=== PATIENT | female | born 2000 | race American Indian/Alaskan Native ===

== ENCOUNTER 2020-02-09 14:20 | Emergency (ER) | payer OTHER ==
[~2020-02-09] VITALS: Ht 160 cm; Wt 68.0 kg
[2020-02-09 14:54] LABS: BASOPHILS ABSOLUTE AUTO 0.03 K/mm3 (0.00-0.23); BASOPHILS PERCENT AUTO 0 % (0-2); EOSINOPHILS PERCENT AUTO 2 % (0-6); Hematocrit 47.9 % (33.0-51.0); Hemoglobin 14.6 g/dL (11.5-16.0); IMMATURE GRAN ABSOLUTE AUTO 0.03 K/mm3 (0.00-0.10); IMMATURE GRAN PERCENT AUTO 0 % (0-1); LYMPHOCYTES PERCENT AUTO 21 % (21-46); MONOCYTES ABSOLUTE AUTO 0.55 K/mm3 (0.16-1.47); MONOCYTES PERCENT AUTO 6 % (4-13); Mean Corpuscular HGB Conc 30.5 g/dL (31.5-36.5); Mean Corpuscular Volume 85 fL (80-100); Mean Platelet Volume 11.1 fL (9.1-12.4); NEUTROPHILS ABSOLUTE AUTO 6.94 K/mm3 (1.96-9.15); NEUTROPHILS PERCENT AUTO 71 % (41-73); Platelet Count 304 K/mm3 (150-400); RDW Coefficient Variation 14.7 % (11.7-14.2); RDW Standard Deviation 46.5 fL (35.1-46.3); Red Blood Cell Count 5.61 M/mm3 (3.80-5.20); White Blood Cell Count 9.75 K/mm3 (4.00-11.30)
[2020-02-09 15:15] LABS: Alanine Aminotransfer (ALT/SGP 27 U/L (12-78); Albumin, Blood 3.9 g/dL (3.4-5.0); Albumin/Globulin Ratio 0.9 (0.8-1.8); Alk Phos 98 U/L (50-136); Anion Gap 4 mmol/L (6-16); Aspartate Aminotrans (AST/SGOT 18 U/L (12-37); Bilirubin, Total 0.6 mg/dL (0.1-1.0); Blood Urea Nitrogen 11 mg/dL (8-24); Bun/Creatinine Ratio 21.1 (12.0-20.0); CO2, Blood 28 mmol/L (21-32); Calcium, Blood 9.2 mg/dL (8.5-10.1); Chloride, Blood 107 mmol/L (98-108); Creatinine, Blood 0.52 mg/dL (0.40-1.00); Globulin, Blood 4.3 g/dL (2.2-4.0); Glomerular Filtration Rate >60 (60-); Glucose, Blood 99 mg/dL (70-99); Potassium, Blood 4.1 mmol/L (3.5-5.5); Sodium, Blood 139 mmol/L (136-145); Total Protein, Blood 8.2 g/dL (6.4-8.2)
[2020-02-09 15:26] LABS: Source, Urine Clean Catch
[2020-02-09 15:30] LABS: Appearance, Urine Cloudy (Clear); Bilirubin, Urine Neg (Neg); Blood, Urine 1+ (Neg); Color, Urine Yellow (P-Yellow); Glucose Qualitative, Urine Neg (Neg); Ketones, Urine Neg (Neg); Leukocyte Esterase, Urine 2+ (Neg); Nitrite, Urine Pos (Neg); Protein, Urine 2+ (Neg); Urobilinogen, Urine 2+ (Normal)
[2020-02-09 15:44] LABS: Bacteria Many /hpf; Red Blood Cells, Urine Not Seen /hpf (0-2); Squamous Epithelial Cells Mod /hpf (Few)
== END 2020-02-09 18:42 | disposition left against medical advice (07) ==
LOC: ER 14:20
PROVIDERS: Emergency Medicine
DX: R11.2 Nausea with vomiting, unspecified (principal); R10.9 Unspecified abdominal pain; Z53.21 Procedure and treatment not carried out due to patient leaving prior to being seen by health care provider
CPT/HCPCS: 80053; 81001; 81025; 83690; 85025; 87077; 87086; 87186

== ENCOUNTER 2020-06-24 21:15 | Emergency (ER) | payer OTHER ==
[~2020-06-24] VITALS: Ht 160 cm; Wt 67.1 kg
[2020-06-24 21:39] LABS: Source, Urine Clean Catch
[2020-06-24 21:43] LABS: Appearance, Urine Hazy (Clear); Bilirubin, Urine Neg (Neg); Blood, Urine 5+ (Neg); Color, Urine Yellow (P-Yellow); Glucose Qualitative, Urine Neg (Neg); Ketones, Urine 1+ (Neg); Leukocyte Esterase, Urine 3+ (Neg); Nitrite, Urine Pos (Neg); Protein, Urine 2+ (Neg); Specific Gravity, Urine 1.015 (1.003-1.022); Urobilinogen, Urine 2+ (Normal)
[2020-06-24 21:49] LABS: Bacteria Many /hpf; Red Blood Cells, Urine 0-2 /hpf (0-2); Squamous Epithelial Cells Few /hpf (Few); White Blood Cells, Urine TNTC /hpf (0-5)
[2020-06-24 22:03] LABS: BASOPHILS ABSOLUTE AUTO 0.03 K/mm3 (0.00-0.23); BASOPHILS PERCENT AUTO 0 % (0-2); EOSINOPHILS ABSOLUTE AUTO 0.08 K/mm3 (0.00-0.68); EOSINOPHILS PERCENT AUTO 1 % (0-6); Hematocrit 39.6 % (33.0-51.0); Hemoglobin 13.1 g/dL (11.5-16.0); IMMATURE GRAN ABSOLUTE AUTO 0.04 K/mm3 (0.00-0.10); IMMATURE GRAN PERCENT AUTO 0 % (0-1); LYMPHOCYTES ABSOLUTE AUTO 1.67 K/mm3 (0.84-5.20); LYMPHOCYTES PERCENT AUTO 17 % (21-46); MONOCYTES ABSOLUTE AUTO 0.95 K/mm3 (0.16-1.47); MONOCYTES PERCENT AUTO 9 % (4-13); Mean Corpuscular HGB 28.9 pg (26.0-34.0); Mean Corpuscular HGB Conc 33.1 g/dL (31.5-36.5); Mean Corpuscular Volume 87 fL (80-100); NEUTROPHILS PERCENT AUTO 73 % (41-73); Platelet Count 247 K/mm3 (150-400); RDW Coefficient Variation 12.9 % (11.7-14.2); RDW Standard Deviation 41.2 fL (35.1-46.3); Red Blood Cell Count 4.53 M/mm3 (3.80-5.20); White Blood Cell Count 10.07 K/mm3 (4.00-11.30)
[2020-06-24 22:25] LABS: Alanine Aminotransfer (ALT/SGP 21 U/L (12-78); Albumin, Blood 3.2 g/dL (3.4-5.0); Albumin/Globulin Ratio 0.7 (0.8-1.8); Alk Phos 79 U/L (50-136); Anion Gap 4 mmol/L (6-16); Aspartate Aminotrans (AST/SGOT 20 U/L (12-37); Bilirubin, Total 0.6 mg/dL (0.1-1.0); Blood Urea Nitrogen 7 mg/dL (8-24); Bun/Creatinine Ratio 11.7 (12.0-20.0); CO2, Blood 28 mmol/L (21-32); Calcium, Blood 8.8 mg/dL (8.5-10.1); Chloride, Blood 105 mmol/L (98-108); Globulin, Blood 4.3 g/dL (2.2-4.0); Glomerular Filtration Rate >60 (60-); Glucose, Blood 92 mg/dL (70-99); Potassium, Blood 3.4 mmol/L (3.5-5.5); Sodium, Blood 137 mmol/L (136-145); Total Protein, Blood 7.5 g/dL (6.4-8.2)
[2020-06-24] MEDS ORDERED: PHENA200 PO (23:20)
[2020-06-24] MEDS ORDERED: Bactrim Ds Tab1 EACH PO (23:20)
[2020-08-05] MEDS ORDERED: VISBIOME 112.51 EACH PO (14:40)
[2020-08-05] MEDS ORDERED: POTA10T PO (14:40)
[2020-08-05] MEDS ORDERED: CIPR500 PO (14:40)
== END 2020-06-24 23:38 | disposition home or self-care (01) ==
LOC: ER 21:15
PROVIDERS: Physician Assistant
DX: N12 Tubulo-interstitial nephritis, not specified as acute or chronic (principal); Z77.22 Contact with and (suspected) exposure to environmental tobacco smoke (acute) (chronic); Z88.1 Allergy status to other antibiotic agents
CPT/HCPCS: 36415; 80053; 81001; 85025; 87077; 87086; 87186; 99284; A9270

== ENCOUNTER 2020-07-23 16:20 | Emergency (ER) | payer OTHER ==
[~2020-07-23] VITALS: Ht 160 cm; Wt 68.0 kg
[~2020-07-23 16:20] MED LIST: Bactrim Ds Tab1 EACH PO; PHENA200 PO
[2020-07-23 16:45] LABS: BASOPHILS ABSOLUTE AUTO 0.04 K/mm3 (0.00-0.23); BASOPHILS PERCENT AUTO 1 % (0-2); EOSINOPHILS ABSOLUTE AUTO 0.23 K/mm3 (0.00-0.68); EOSINOPHILS PERCENT AUTO 3 % (0-6); Hematocrit 43.6 % (33.0-51.0); IMMATURE GRAN ABSOLUTE AUTO 0.03 K/mm3 (0.00-0.10); IMMATURE GRAN PERCENT AUTO 0 % (0-1); LYMPHOCYTES ABSOLUTE AUTO 2.53 K/mm3 (0.84-5.20); LYMPHOCYTES PERCENT AUTO 29 % (21-46); MONOCYTES ABSOLUTE AUTO 0.56 K/mm3 (0.16-1.47); MONOCYTES PERCENT AUTO 6 % (4-13); Mean Corpuscular HGB 28.2 pg (26.0-34.0); Mean Corpuscular HGB Conc 32.1 g/dL (31.5-36.5); Mean Corpuscular Volume 88 fL (80-100); Mean Platelet Volume 11.8 fL (9.1-12.4); NEUTROPHILS ABSOLUTE AUTO 5.49 K/mm3 (1.96-9.15); NEUTROPHILS PERCENT AUTO 62 % (41-73); Platelet Count 228 K/mm3 (150-400); RDW Coefficient Variation 12.9 % (11.7-14.2); RDW Standard Deviation 41.6 fL (35.1-46.3); Red Blood Cell Count 4.96 M/mm3 (3.80-5.20); White Blood Cell Count 8.88 K/mm3 (4.00-11.30)
[2020-07-23 16:52] LABS: Source, Urine Clean Catch
[2020-07-23 16:55] LABS: Appearance, Urine Hazy (Clear); Bilirubin, Urine Neg (Neg); Blood, Urine 1+ (Neg); Color, Urine Amber (P-Yellow); Glucose Qualitative, Urine Neg (Neg); Ketones, Urine Neg (Neg); Leukocyte Esterase, Urine 2+ (Neg); Nitrite, Urine Pos (Neg); Protein, Urine 2+ (Neg); Specific Gravity, Urine 1.015 (1.003-1.022); Urobilinogen, Urine NORM (Normal); pH, Urine 6.5 (5.0-8.0)
[2020-07-23] MEDS ORDERED: Macrobid 100 M100 MG PO (17:02)
[2020-07-23 17:06] LABS: Alanine Aminotransfer (ALT/SGP 23 U/L (12-78); Albumin, Blood 3.8 g/dL (3.4-5.0); Alk Phos 85 U/L (50-136); Anion Gap 5 mmol/L (6-16); Aspartate Aminotrans (AST/SGOT 10 U/L (12-37); Bilirubin, Total 0.2 mg/dL (0.1-1.0); Blood Urea Nitrogen 8 mg/dL (8-24); Bun/Creatinine Ratio 13.4 (12.0-20.0); CO2, Blood 27 mmol/L (21-32); Calcium, Blood 8.8 mg/dL (8.5-10.1); Chloride, Blood 107 mmol/L (98-108); Glomerular Filtration Rate >60 (60-); Glucose, Blood 69 mg/dL (70-99); Potassium, Blood 3.4 mmol/L (3.5-5.5); Sodium, Blood 139 mmol/L (136-145); Total Protein, Blood 7.8 g/dL (6.4-8.2)
[2020-07-23 17:17] LABS: Mucus Mod (0-Heavy)
[2020-07-23 17:18] LABS: Bacteria Many /hpf; Squamous Epithelial Cells Few /hpf (Few)
[2020-08-05] MEDS ORDERED: VISBIOME 112.51 EACH PO (14:40)
[2020-08-05] MEDS ORDERED: POTA10T PO (14:40)
[2020-08-05] MEDS ORDERED: CIPR500 PO (14:40)
== END 2020-07-23 17:28 | disposition home or self-care (01) ==
LOC: ER 16:20
PROVIDERS: Physician Assistant
DX: N39.0 Urinary tract infection, site not specified (principal); N94.6 Dysmenorrhea, unspecified; F17.210 Nicotine dependence, cigarettes, uncomplicated; Z91.030 Bee allergy status; Z91.018 Allergy to other foods; Z79.899 Other long term (current) drug therapy
CPT/HCPCS: 36415; 80053; 81001; 81025; 83690; 85025; 87077; 87086; 87186; 99284

== ENCOUNTER 2021-07-21 21:34 | Emergency (ER) | payer OTHER ==
[~2021-07-21] VITALS: Ht 160 cm; Wt 52.2 kg
[~2021-07-21 21:34] MED LIST changes: +CIPR500 PO; +Macrobid 100 M100 MG PO; +POTA10T PO; +VISBIOME 112.51 EACH PO
[2021-07-21] MEDS ORDERED: CLIN300 PO (22:54)
== END 2021-07-21 23:10 | disposition home or self-care (01) ==
LOC: ER 21:34
DX: L03.011 Cellulitis of right finger (principal); F17.210 Nicotine dependence, cigarettes, uncomplicated
CPT/HCPCS: 73130; 99283-25; A9270

== ENCOUNTER 2022-03-01 17:51 | Emergency (ER) | payer SELFPAY ==
[~2022-03-01] VITALS: Ht 162.6 cm; Wt 61.2 kg
[~2022-03-01 17:51] MED LIST changes: +CLIN300 PO
[2022-03-01 19:16] LABS: BASOPHILS ABSOLUTE AUTO 0.05 K/mm3 (0.00-0.23); BASOPHILS PERCENT AUTO 0 % (0-2); EOSINOPHILS ABSOLUTE AUTO 0.07 K/mm3 (0.00-0.68); EOSINOPHILS PERCENT AUTO 1 % (0-6); Hematocrit 41.2 % (33.0-51.0); Hemoglobin 13.2 g/dL (11.5-16.0); IMMATURE GRAN ABSOLUTE AUTO 0.04 K/mm3 (0.00-0.10); IMMATURE GRAN PERCENT AUTO 0 % (0-1); LYMPHOCYTES ABSOLUTE AUTO 2.28 K/mm3 (0.84-5.20); LYMPHOCYTES PERCENT AUTO 15 % (21-46); MONOCYTES ABSOLUTE AUTO 0.97 K/mm3 (0.16-1.47); MONOCYTES PERCENT AUTO 7 % (4-13); Mean Corpuscular HGB 28.6 pg (26.0-34.0); Mean Corpuscular Volume 89 fL (80-100); Mean Platelet Volume 11.1 fL (9.1-12.4); NEUTROPHILS ABSOLUTE AUTO 11.49 K/mm3 (1.96-9.15); NEUTROPHILS PERCENT AUTO 77 % (41-73); Platelet Count 368 K/mm3 (150-400); RDW Coefficient Variation 13.7 % (11.7-14.2); RDW Standard Deviation 44.7 fL (35.1-46.3); Red Blood Cell Count 4.61 M/mm3 (3.80-5.20)
[2022-03-01 19:55] LABS: Albumin, Blood 4.1 g/dL (3.4-5.0); Albumin/Globulin Ratio 1.1 (0.8-1.8); Bilirubin, Total 0.5 mg/dL (0.1-1.0); Bun/Creatinine Ratio 33.2 (12.0-20.0); Calcium, Blood 9.4 mg/dL (8.5-10.1); Creatinine, Blood 0.6 mg/dL (0.40-1.00); Globulin, Blood 3.9 g/dL (2.2-4.0); Potassium, Blood 3.9 mmol/L (3.5-5.5)
== END 2022-03-01 21:04 | disposition left against medical advice (07) ==
LOC: ER 17:51
PROVIDERS: Emergency Medicine
DX: R10.9 Unspecified abdominal pain (principal); R11.2 Nausea with vomiting, unspecified; Z91.030 Bee allergy status; Z91.018 Allergy to other foods; Z91.048 Other nonmedicinal substance allergy status
CPT/HCPCS: 36415; 80053; 84703; 85025; J1885; J2405; J7030

== ENCOUNTER 2022-12-25 13:23 | Emergency (ER) | payer SELFPAY ==
[~2022-12-25] VITALS: Ht 162.6 cm; Wt 54.4 kg
[2022-12-25 14:28] LABS: BASOPHILS ABSOLUTE AUTO 0.05 K/mm3 (0.00-0.23); BASOPHILS PERCENT AUTO 1 % (0-2); EOSINOPHILS ABSOLUTE AUTO 0.19 K/mm3 (0.00-0.68); EOSINOPHILS PERCENT AUTO 2 % (0-6); Hematocrit 40.2 % (33.0-51.0); Hemoglobin 12.7 g/dL (11.5-16.0); IMMATURE GRAN ABSOLUTE AUTO 0.03 K/mm3 (0.00-0.10); IMMATURE GRAN PERCENT AUTO 0 % (0-1); LYMPHOCYTES ABSOLUTE AUTO 2.67 K/mm3 (0.84-5.20); LYMPHOCYTES PERCENT AUTO 27 % (21-46); MONOCYTES PERCENT AUTO 5 % (4-13); Mean Corpuscular HGB 28.2 pg (26.0-34.0); Mean Corpuscular HGB Conc 31.6 g/dL (31.5-36.5); Mean Corpuscular Volume 89 fL (80-100); NEUTROPHILS ABSOLUTE AUTO 6.55 K/mm3 (1.96-9.15); NEUTROPHILS PERCENT AUTO 66 % (41-73); Platelet Count 361 K/mm3 (150-400); RDW Coefficient Variation 14.5 % (11.7-14.2); RDW Standard Deviation 47.7 fL (35.1-46.3); Red Blood Cell Count 4.51 M/mm3 (3.80-5.20); White Blood Cell Count 9.99 K/mm3 (4.00-11.30)
[2022-12-25 14:43] LABS: Albumin, Blood 3.6 g/dL (3.4-5.0); Albumin/Globulin Ratio 0.9 (0.8-1.8); Bilirubin, Total 0.3 mg/dL (0.1-1.0); Bun/Creatinine Ratio 22.1 (12.0-20.0); Calcium, Blood 8.5 mg/dL (8.5-10.1); Creatinine, Blood 0.68 mg/dL (0.40-1.00); Globulin, Blood 3.8 g/dL (2.2-4.0); Potassium, Blood 3.8 mmol/L (3.5-5.5); Total Protein, Blood 7.4 g/dL (6.4-8.2)
[2022-12-25 15:01] VITALS: BP 124/68
== END 2022-12-25 15:29 | disposition home or self-care (01) ==
LOC: ER 13:23
PROVIDERS: Emergency Medicine
DX: F41.9 Anxiety disorder, unspecified (principal); Z88.8 Allergy status to other drugs, medicaments and biological substances; Z91.030 Bee allergy status; Z91.048 Other nonmedicinal substance allergy status; F17.210 Nicotine dependence, cigarettes, uncomplicated
CPT/HCPCS: 71046; 80053; 84484; 85025; 93005; 93010; 96374; 96375; 99285-25; A9270; J1885; J2405

== ENCOUNTER 2023-03-22 19:21 | Emergency (ER) | payer SELFPAY ==
[~2023-03-22] VITALS: Ht 160 cm; Wt 72.6 kg
[2023-03-22] MEDS ORDERED: Buspirone HCl15 MG PO (19:26)
[2023-03-22] MEDS ORDERED: HYDHCL25 PO (19:27)
[2023-03-22] MEDS ORDERED: CATAPRES0.1 MG PO (19:27)
[2023-03-22 21:00] VITALS: BP 129/74
== END 2023-03-22 21:25 | disposition home or self-care (01) ==
LOC: ER 19:21
DX: T78.1XXA Other adverse food reactions, not elsewhere classified, initial encounter (principal); F17.210 Nicotine dependence, cigarettes, uncomplicated; Z91.018 Allergy to other foods; Z91.030 Bee allergy status; Z88.1 Allergy status to other antibiotic agents; Z91.048 Other nonmedicinal substance allergy status; Z79.899 Other long term (current) drug therapy
CPT/HCPCS: 93005; 93010; 99283-25

== ENCOUNTER → 2023-05-01 | Outpatient (CLI) | payer OTHER ==
[~2023-05-01] MED LIST changes: +Buspirone HCl15 MG PO; +CATAPRES0.1 MG PO; +HYDHCL25 PO
== END | disposition home or self-care (01) ==
LOC: LAB SHORT 15:41 → LAB 15:41
DX: N39.0 Urinary tract infection, site not specified (principal)
CPT/HCPCS: 87086

== ENCOUNTER → 2023-06-18 | Outpatient (CLI) | payer OTHER | END | disposition home or self-care (01) | LOC: LAB 13:40 → LAB SHORT 13:40 | DX: R30.0 Dysuria (principal) | CPT/HCPCS: 87086 ==

== ENCOUNTER 2023-09-09 13:27 | Emergency (ER) | payer OTHER ==
[~2023-09-09] VITALS: Ht 160 cm; Wt 63.5 kg
[2023-09-09 14:09] LABS: BASOPHILS ABSOLUTE AUTO 0.04 K/mm3 (0.00-0.23); BASOPHILS PERCENT AUTO 0 % (0-2); EOSINOPHILS ABSOLUTE AUTO 0.27 K/mm3 (0.00-0.68); EOSINOPHILS PERCENT AUTO 3 % (0-6); Hematocrit 41.1 % (33.0-51.0); Hemoglobin 13.2 g/dL (11.5-16.0); IMMATURE GRAN ABSOLUTE AUTO 0.04 K/mm3 (0.00-0.10); IMMATURE GRAN PERCENT AUTO 0 % (0-1); LYMPHOCYTES ABSOLUTE AUTO 2.64 K/mm3 (0.84-5.20); LYMPHOCYTES PERCENT AUTO 26 % (21-46); MONOCYTES ABSOLUTE AUTO 0.62 K/mm3 (0.16-1.47); MONOCYTES PERCENT AUTO 6 % (4-13); Mean Corpuscular HGB 27.4 pg (26.0-34.0); Mean Corpuscular HGB Conc 32.1 g/dL (31.5-36.5); Mean Corpuscular Volume 85 fL (80-100); Mean Platelet Volume 11.3 fL (9.1-12.4); NEUTROPHILS ABSOLUTE AUTO 6.57 K/mm3 (1.96-9.15); NEUTROPHILS PERCENT AUTO 65 % (41-73); Platelet Count 266 K/mm3 (150-400); RDW Coefficient Variation 13.5 % (11.7-14.2); RDW Standard Deviation 42.4 fL (35.1-46.3); Red Blood Cell Count 4.81 M/mm3 (3.80-5.20); White Blood Cell Count 10.18 K/mm3 (4.00-11.30)
[2023-09-09 14:26] LABS: Albumin, Blood 3.6 g/dL (3.4-5.0); Albumin/Globulin Ratio 0.9 (0.8-1.8); Bilirubin, Total 0.2 mg/dL (0.1-1.0); Bun/Creatinine Ratio 25.5 (12.0-20.0); Calcium, Blood 8.7 mg/dL (8.5-10.1); Creatinine, Blood 0.59 mg/dL (0.40-1.00); Globulin, Blood 3.8 g/dL (2.2-4.0); Potassium, Blood 3.9 mmol/L (3.5-5.5); Total Protein, Blood 7.4 g/dL (6.4-8.2)
[2023-09-09 14:50] LABS: Source, Urine Clean Catch
[2023-09-09 14:55] LABS: Appearance, Urine Hazy (Clear); Bilirubin, Urine Neg (Neg); Blood, Urine Neg (Neg); Color, Urine Yellow (P-Yellow); Glucose Qualitative, Urine Neg (Neg); Ketones, Urine 1+ (Neg); Leukocyte Esterase, Urine 1+ (Neg); Nitrite, Urine Neg (Neg); Protein, Urine 1+ (Neg); Specific Gravity, Urine 1.015 (1.003-1.022); Urobilinogen, Urine 1+ (Normal)
[2023-09-09 15:05] LABS: Amorphous Light (0-Heavy); Bacteria Mod /hpf; Mucus Light (0-Heavy); Red Blood Cells, Urine Not Seen /hpf (0-2); Squamous Epithelial Cells Mod /hpf (Few)
[2023-09-09] MEDS ORDERED: Nitrofurantoin/Nitrofuran Mac 100 MG Cap PO ONE (16:35)
[2023-09-09] MEDS ORDERED: Macrobid 100 M100 MG PO (16:36)
[2023-09-09 17:00] VITALS: BP 113/82
== END 2023-09-09 17:07 | disposition home or self-care (01) ==
LOC: ER 13:27
PROVIDERS: Student in an Organized Health Care Education/Training Program
DX: N39.0 Urinary tract infection, site not specified (principal); Z91.030 Bee allergy status; Z88.8 Allergy status to other drugs, medicaments and biological substances; Z91.048 Other nonmedicinal substance allergy status; F17.210 Nicotine dependence, cigarettes, uncomplicated
CPT/HCPCS: 76770; 80053; 81001; 81025; 83690; 85025; 87077; 87086; 87186; 99284-25; A9270

== ENCOUNTER 2023-11-05 14:09 | Emergency (ER) | payer OTHER ==
[~2023-11-05] VITALS: Ht 160 cm; Wt 65.8 kg
[2023-11-05 14:12] VITALS: BP 115/71
[2023-11-05 14:32] LABS: Source, Urine Clean Catch
[2023-11-05 14:35] LABS: Appearance, Urine Cloudy (Clear); Bilirubin, Urine Neg (Neg); Blood, Urine 3+ (Neg); Color, Urine Yellow (P-Yellow); Glucose Qualitative, Urine Neg (Neg); Ketones, Urine Neg (Neg); Leukocyte Esterase, Urine 3+ (Neg); Nitrite, Urine Neg (Neg); Protein, Urine 4+ (Neg); Urobilinogen, Urine NORM (Normal); pH, Urine 6.5 (5.0-8.0)
[2023-11-05 15:01] LABS: Bacteria Many /hpf; Mucus Light (0-Heavy); Red Blood Cells, Urine 25-50 /hpf (0-2); Squamous Epithelial Cells Mod /hpf (Few); Transitional Epithelial Cells Rare /hpf (0-Rare); White Blood Cells, Urine TNTC /hpf (0-5)
[2023-11-05] MEDS ORDERED: Acetaminophen 325 MG TABLET PO ONE (15:20)
[2023-11-05] MEDS ORDERED: Ibuprofen 600 MG Tab PO ONE (15:20)
[2023-11-05] MEDS ORDERED: PHENA200 PO (15:21)
[2023-11-05] MEDS ORDERED: NITR100CA PO (15:21)
== END 2023-11-05 15:29 | disposition home or self-care (01) ==
LOC: ER 14:09
PROVIDERS: Physician Assistant
DX: N39.0 Urinary tract infection, site not specified (principal); F17.210 Nicotine dependence, cigarettes, uncomplicated; Z79.899 Other long term (current) drug therapy; Z91.018 Allergy to other foods; Z91.038 Other insect allergy status; Z88.1 Allergy status to other antibiotic agents; Z91.048 Other nonmedicinal substance allergy status
CPT/HCPCS: 81001; 81025; 87077; 87086; 87186; 99283; A9270

== ENCOUNTER 2024-02-17 18:40 | Emergency (ER) | payer OTHER ==
[~2024-02-17] VITALS: Ht 160 cm; Wt 63.5 kg
[~2024-02-17 18:40] MED LIST changes: +NITR100CA PO
[2024-02-17 19:26] LABS: Source, Urine Clean Catch
[2024-02-17 19:32] LABS: Appearance, Urine Cloudy (Clear); Bilirubin, Urine Neg (Neg); Blood, Urine 4+ (Neg); Color, Urine Yellow (P-Yellow); Glucose Qualitative, Urine Neg (Neg); Ketones, Urine Neg (Neg); Leukocyte Esterase, Urine 3+ (Neg); Nitrite, Urine Pos (Neg); Protein, Urine 2+ (Neg); Specific Gravity, Urine 1.015 (1.003-1.022); Urobilinogen, Urine NORM (Normal)
[2024-02-17 19:39] LABS: Bacteria Many /hpf; Mucus Light (0-Heavy); Squamous Epithelial Cells Few /hpf (Few); White Blood Cells, Urine 25-50 /hpf (0-5)
[2024-02-17 19:59] LABS: Influenza A, PCR NEGATIVE (NEGATIVE); Influenza B, PCR NEGATIVE (NEGATIVE); Resp Syncytial Virus, PCR NEGATIVE (NEGATIVE); SARS-Cov-2 (COVID-19) PCR, MMC NEGATIVE (NEGATIVE)
[2024-02-17 20:27] VITALS: BP 119/67
[2024-02-17] MEDS ORDERED: Trimethoprim/Sulfamethoxazole DS Tab PO ONE (20:40)
[2024-02-17] MEDS ORDERED: Ketorolac Tromethamine 30mg Vial IM ONE (20:40)
[2024-02-17] MEDS ORDERED: Ondansetron 4 MG SoluTab SL ONE (20:55)
[2024-02-17] MEDS ORDERED: Bactrim Ds Tab1 EACH PO (21:00)
[2024-02-19] MEDS ORDERED: ACET500 PO (20:12)
[2024-02-19] MEDS ORDERED: CIPR500 PO (20:12)
[2024-02-19] MEDS ORDERED: K-Phos Origina500 MG PO (20:13)
[2024-02-19] MEDS ORDERED: METO10 PO (20:22)
[2024-02-20] MEDS ORDERED: CIPR500 PO (12:08)
[2024-02-20] MEDS ORDERED: METO10 PO (12:08)
[2024-02-20] MEDS ORDERED: ACET500 PO (12:08)
[2024-02-20] MEDS ORDERED: K-Phos Origina500 MG PO (12:08)
== END 2024-02-17 21:05 | disposition home or self-care (01) ==
LOC: ER 18:40
PROVIDERS: Physician Assistant
DX: N39.0 Urinary tract infection, site not specified (principal); F17.210 Nicotine dependence, cigarettes, uncomplicated; Z91.030 Bee allergy status; Z91.018 Allergy to other foods; Z91.09 Other allergy status, other than to drugs and biological substances; Z88.8 Allergy status to other drugs, medicaments and biological substances; Z11.52 Encounter for screening for COVID-19
CPT/HCPCS: 0241U; 81001; 87077; 87086; 87186; 96372; 99284-25; A9270; J1885

== ENCOUNTER 2024-03-14 13:26 | Emergency (ER) | payer OTHER ==
[~2024-03-14] VITALS: Ht 160 cm; Wt 63.5 kg
[~2024-03-14 13:26] MED LIST changes: +ACET500 PO; +K-Phos Origina500 MG PO; +METO10 PO
[2024-03-14 14:01] LABS: Source, Urine Clean Catch
[2024-03-14 14:18] LABS: BASOPHILS ABSOLUTE AUTO 0.02 K/mm3 (0.00-0.23); BASOPHILS PERCENT AUTO 0 % (0-2); EOSINOPHILS ABSOLUTE AUTO 0.23 K/mm3 (0.00-0.68); EOSINOPHILS PERCENT AUTO 3 % (0-6); Hematocrit 43.2 % (33.0-51.0); IMMATURE GRAN ABSOLUTE AUTO 0.01 K/mm3 (0.00-0.10); IMMATURE GRAN PERCENT AUTO 0 % (0-1); LYMPHOCYTES ABSOLUTE AUTO 1.49 K/mm3 (0.84-5.20); LYMPHOCYTES PERCENT AUTO 21 % (21-46); MONOCYTES ABSOLUTE AUTO 0.79 K/mm3 (0.16-1.47); MONOCYTES PERCENT AUTO 11 % (4-13); Mean Corpuscular HGB 27.9 pg (26.0-34.0); Mean Corpuscular HGB Conc 32.4 g/dL (31.5-36.5); Mean Corpuscular Volume 86 fL (80-100); Mean Platelet Volume 11.9 fL (9.1-12.4); NEUTROPHILS ABSOLUTE AUTO 4.61 K/mm3 (1.96-9.15); NEUTROPHILS PERCENT AUTO 65 % (41-73); Platelet Count 217 K/mm3 (150-400); RDW Coefficient Variation 13.5 % (11.7-14.2); RDW Standard Deviation 42.2 fL (35.1-46.3); Red Blood Cell Count 5.01 M/mm3 (3.80-5.20); White Blood Cell Count 7.15 K/mm3 (4.00-11.30)
[2024-03-14 14:22] LABS: Appearance, Urine Hazy (Clear); Bilirubin, Urine Neg (Neg); Blood, Urine 1+ (Neg); Color, Urine Yellow (P-Yellow); Glucose Qualitative, Urine Neg (Neg); Ketones, Urine Neg (Neg); Leukocyte Esterase, Urine 2+ (Neg); Nitrite, Urine Neg (Neg); Protein, Urine 2+ (Neg); Specific Gravity, Urine 1.015 (1.003-1.022); Urobilinogen, Urine NORM (Normal)
[2024-03-14 14:27] LABS: Albumin, Blood 3.8 g/dL (3.4-5.0); Albumin/Globulin Ratio 0.9 (0.8-1.8); Bilirubin, Total 0.4 mg/dL (0.1-1.0); Bun/Creatinine Ratio 14.6 (12.0-20.0); Creatinine, Blood 0.68 mg/dL (0.40-1.00); Globulin, Blood 4.1 g/dL (2.2-4.0); Potassium, Blood 3.5 mmol/L (3.5-5.5); Total Protein, Blood 7.9 g/dL (6.4-8.2)
[2024-03-14 16:22] VITALS: BP 117/78
[2024-03-14] MEDS ORDERED: Ketorolac Tromethamine 30mg Vial IV ONE (16:35)
[2024-03-14] MEDS ORDERED: Ciprofloxacin 500 MG Tab PO ONE (16:35)
[2024-03-14 17:12] LABS: Bacteria Many /hpf; Mucus Mod (0-Heavy); Red Blood Cells, Urine 0-2 /hpf (0-2); Squamous Epithelial Cells Many /hpf (Few)
[2024-03-14 17:13] LABS: Amorphous Light (0-Heavy); Calcium Oxalate Crystals Few /hpf
[2024-03-14] MEDS ORDERED: Cipro500 MG PO (17:17)
== END 2024-03-14 17:47 | disposition home or self-care (01) ==
LOC: ER 13:26
PROVIDERS: Physician Assistant
DX: N39.0 Urinary tract infection, site not specified (principal); Z91.030 Bee allergy status; Z88.8 Allergy status to other drugs, medicaments and biological substances; Z91.018 Allergy to other foods; Z88.1 Allergy status to other antibiotic agents; Z79.899 Other long term (current) drug therapy; F17.210 Nicotine dependence, cigarettes, uncomplicated
CPT/HCPCS: 80053; 81001; 84703; 85025; 87086; 87147; 96374; 99284-25; A9270; J1885

== ENCOUNTER 2024-04-18 15:50 | Emergency (ER) | payer OTHER ==
[~2024-04-18] VITALS: Ht 160 cm; Wt 63.0 kg
[~2024-04-18 15:50] MED LIST changes: +Cipro500 MG PO
[2024-04-18 16:07] VITALS: BP 144/71
[2024-04-18] MEDS ORDERED: Ketorolac Tromethamine 15mg Vial IV ONE (16:10)
[2024-04-18 16:42] LABS: BASOPHILS ABSOLUTE AUTO 0.03 K/mm3 (0.00-0.23); BASOPHILS PERCENT AUTO 0 % (0-2); EOSINOPHILS ABSOLUTE AUTO 0.17 K/mm3 (0.00-0.68); EOSINOPHILS PERCENT AUTO 3 % (0-6); Hematocrit 39.7 % (33.0-51.0); Hemoglobin 12.7 g/dL (11.5-16.0); IMMATURE GRAN ABSOLUTE AUTO 0.02 K/mm3 (0.00-0.10); IMMATURE GRAN PERCENT AUTO 0 % (0-1); LYMPHOCYTES ABSOLUTE AUTO 2.04 K/mm3 (0.84-5.20); LYMPHOCYTES PERCENT AUTO 30 % (21-46); MONOCYTES ABSOLUTE AUTO 0.37 K/mm3 (0.16-1.47); MONOCYTES PERCENT AUTO 5 % (4-13); Mean Corpuscular HGB 28.1 pg (26.0-34.0); Mean Corpuscular Volume 88 fL (80-100); Mean Platelet Volume 11.1 fL (9.1-12.4); NEUTROPHILS ABSOLUTE AUTO 4.22 K/mm3 (1.96-9.15); NEUTROPHILS PERCENT AUTO 62 % (41-73); Platelet Count 229 K/mm3 (150-400); RDW Coefficient Variation 13.7 % (11.7-14.2); RDW Standard Deviation 44.2 fL (35.1-46.3); Red Blood Cell Count 4.52 M/mm3 (3.80-5.20); White Blood Cell Count 6.85 K/mm3 (4.00-11.30)
[2024-04-18 17:06] LABS: Albumin, Blood 3.3 g/dL (3.4-5.0); Albumin/Globulin Ratio 0.9 (0.8-1.8); Bilirubin, Total 0.4 mg/dL (0.1-1.0); Bun/Creatinine Ratio 16.3 (12.0-20.0); Creatinine, Blood 0.67 mg/dL (0.40-1.00); Globulin, Blood 3.7 g/dL (2.2-4.0); Potassium, Blood 3.7 mmol/L (3.5-5.5)
== END 2024-04-18 17:24 | disposition left against medical advice (07) ==
LOC: ER 15:50
PROVIDERS: Physician Assistant
DX: R10.9 Unspecified abdominal pain (principal); Z53.29 Procedure and treatment not carried out because of patient's decision for other reasons; F17.210 Nicotine dependence, cigarettes, uncomplicated; Z79.899 Other long term (current) drug therapy; Z91.030 Bee allergy status; Z91.018 Allergy to other foods; Z88.5 Allergy status to narcotic agent
CPT/HCPCS: 80053; 81001; 81025; 84703; 85025; 87086; 99281; 99283

== ENCOUNTER 2024-04-18 20:34 | Emergency (ER) | payer OTHER ==
[~2024-04-18] VITALS: Ht 160 cm; Wt 63.0 kg
[2024-04-18 20:56] VITALS: BP 142/88
[2024-04-18 21:13] LABS: Source, Urine Clean Catch
[2024-04-18 21:30] LABS: Appearance, Urine Cloudy (Clear); Bilirubin, Urine Neg (Neg); Blood, Urine Neg (Neg); Color, Urine Yellow (P-Yellow); Glucose Qualitative, Urine Neg (Neg); Ketones, Urine Neg (Neg); Leukocyte Esterase, Urine 1+ (Neg); Nitrite, Urine Neg (Neg); Protein, Urine Neg (Neg); Urobilinogen, Urine NORM (Normal)
[2024-04-18 21:45] LABS: Amorphous Heavy (0-Heavy); Bacteria Few /hpf; Red Blood Cells, Urine 0-2 /hpf (0-2); Squamous Epithelial Cells Few /hpf (Few); White Blood Cells, Urine 0-2 /hpf (0-5)
== END 2024-04-18 22:20 ==
LOC: ER 20:34
PROVIDERS: Physician Assistant
DX: R10.9 Unspecified abdominal pain (principal); F17.210 Nicotine dependence, cigarettes, uncomplicated; Z79.899 Other long term (current) drug therapy; Z91.030 Bee allergy status; Z91.018 Allergy to other foods; Z88.5 Allergy status to narcotic agent
CPT/HCPCS: 81001; 81025; 87086; 99283

== ENCOUNTER 2024-06-11 19:31 | Emergency (ER) | payer OTHER ==
[~2024-06-11] VITALS: Ht 160 cm; Wt 56.7 kg
[2024-06-11 19:46] VITALS: BP 102/84
== END 2024-06-11 19:57 | disposition home or self-care (01) ==
LOC: ER 19:31
DX: J06.9 Acute upper respiratory infection, unspecified (principal); B34.9 Viral infection, unspecified; Z79.899 Other long term (current) drug therapy; Z91.030 Bee allergy status; Z91.018 Allergy to other foods; Z88.5 Allergy status to narcotic agent; Z91.048 Other nonmedicinal substance allergy status
CPT/HCPCS: 99282

== ENCOUNTER → 2024-06-16 | Outpatient (CLI) | payer OTHER | END | disposition home or self-care (01) | LOC: LAB 16:30 → LAB SHORT 16:30 | DX: J02.9 Acute pharyngitis, unspecified (principal) | CPT/HCPCS: 87081 ==

== ENCOUNTER 2024-06-28 22:05 | Emergency (ER) | payer OTHER ==
[~2024-06-28] VITALS: Ht 160 cm; Wt 59.0 kg
[2024-06-28] MEDS ORDERED: Famotidine 10 MG/ML 2ML Vial IV ONE (22:15)
[2024-06-28] MEDS ORDERED: MethylPREDNISolone Sod Succ 125 MG Vial IV ONE (22:15)
[2024-06-28] MEDS ORDERED: EPINEPhrine HCl 1 MG/ML 1ML Amp IM ONE (22:15)
[2024-06-28] MEDS ORDERED: DiphenhydrAMINE HCl 50 MG/ML 1ML Vial IV ONE (22:15)
[2024-06-28] MEDS ORDERED: EpiNEPhrine 1 MG/1 ML 1ML Vial IM ONE (22:20)
[2024-06-29] MEDS ORDERED: EPIPEN0.3 MG/0.1 IM (00:07)
[2024-06-29] MEDS ORDERED: BENADRYL25 M1 PO (00:07)
[2024-06-29] MEDS ORDERED: PRED20 PO (00:07)
[2024-06-29 00:20] VITALS: BP 107/48
== END 2024-06-29 00:20 | disposition home or self-care (01) ==
LOC: ER 22:05
DX: T78.09XA Anaphylactic reaction due to other food products, initial encounter (principal); R07.0 Pain in throat; L29.9 Pruritus, unspecified; Z91.018 Allergy to other foods
CPT/HCPCS: J0171; J1200; J2919

== ENCOUNTER → 2024-09-24 | Outpatient (CLI) | payer OTHER ==
[~2024-09-24] MED LIST changes: +BENADRYL25 M1 PO; +EPIPEN0.3 MG/0.1 IM; +PRED20 PO
== END ==
LOC: LAB 14:19 → LAB SHORT 14:19
DX: N39.0 Urinary tract infection, site not specified (principal)
CPT/HCPCS: 87086; 87147

== ENCOUNTER 2024-11-19 19:48 | Emergency (ER) | payer OTHER ==
[~2024-11-19] VITALS: Ht 160 cm; Wt 60.8 kg
[2024-11-19] MEDS ORDERED: DiphenhydrAMINE HCl 50 MG/ML 1ML Vial IV ONE (20:05)
[2024-11-19] MEDS ORDERED: EpiNEPhrine 1 MG/1 ML 1ML Vial IM ONE (20:05)
[2024-11-19 22:45] VITALS: BP 131/78
== END 2024-11-19 23:34 | disposition home or self-care (01) ==
LOC: ER 19:48
DX: T78.1XXA Other adverse food reactions, not elsewhere classified, initial encounter (principal); F17.210 Nicotine dependence, cigarettes, uncomplicated; Z88.1 Allergy status to other antibiotic agents; Z91.030 Bee allergy status; Z91.048 Other nonmedicinal substance allergy status; Z79.899 Other long term (current) drug therapy
CPT/HCPCS: 96372; 96374; 96375; 99284-25; J0165; J1200; J2919

== ENCOUNTER → 2024-12-08 | Outpatient (CLI) | payer OTHER | LOC: LAB SHORT 11:05 → LAB 11:05 | DX: N39.0 Urinary tract infection, site not specified (principal) | CPT/HCPCS: 87077; 87086; 87186 ==

== ENCOUNTER 2025-01-21 12:04 | Inpatient (IN) | payer OTHER ==
[2025-01-21] VITALS (15 sets, daily range): BP systolic 104–123; BP diastolic 53–81
[~2025-01-21] VITALS: Ht 160 cm; Wt 58.8 kg
[~2025-01-21 12:04] MED LIST changes: +ALBU90OI INH; +LAMOTRIGINE OD200 MG PO; +METPHE5 PO
[2025-01-21] MEDS ORDERED: CIPR500 PO (12:45)
[2025-01-21] MEDS ORDERED: FentaNYL Citrate 50 MCG/ML 5 ML Injection ONE (14:28)
[2025-01-21] MEDS ORDERED: Midazolam HCl 1MG / ML 2ML Vial ONE ×2 (14:28→18:52)
[2025-01-21] MEDS ORDERED: Rocuronium Bromide 10 MG/ML 5ML Injection IV ONE ×2 (14:30→18:34)
[2025-01-21] MEDS ORDERED: Bupivacaine 0.25% Epi 1:200000 30 ML Vial ONE (15:25)
[2025-01-21] MEDS ORDERED: FentaNYL Citrate 50 MCG/ML 2 ML Injection IV PRN ×3 (17:10)
[2025-01-21] MEDS ORDERED: Ondansetron HCl 2 MG / ML 2ML Vial IV PRN (17:10)
[2025-01-21] MEDS ORDERED: HYDROmorphone HCl/Pf 1MG SYR IV PRN ×2 (17:10→23:55)
[2025-01-21] MEDS ORDERED: Sugammadex Sodium 200 MG/2ML SDV (100 MG/ML) ONE (18:34)
[2025-01-21] MEDS ORDERED: HYDROmorphone HCl/Pf 1MG SYR ONE ×2 (18:53→19:31)
[2025-01-21] MEDS ORDERED: FentaNYL Citrate 50 MCG/ML 2 ML Injection ONE (19:35)
[2025-01-21] MEDS ORDERED: Morphine Sulfate 4 MG/1 ML Injection IV PRN (19:40)
[2025-01-21] MEDS ORDERED: OxyCODONE 5 mg/Acetamin 325 mg TABLET PO PRN (19:40)
[2025-01-21] MEDS ORDERED: Ondansetron 4 MG SoluTab MM PRN (19:45)
[2025-01-22] MEDS ORDERED: HYDROmorphone HCl/Pf 1MG SYR IV PRN (00:05)
[2025-01-22 00:22] VITALS: BP 127/75
[2025-01-22] MEDS ORDERED: Ondansetron HCl 2 MG / ML 2ML Vial IV PRN (00:25)
[2025-01-22] MEDS ORDERED: DiphenhydrAMINE HCl 50 MG/ML 1ML Vial IV PRN (00:30)
[2025-01-22] MEDS ORDERED: Naloxone HCl 0.4MG / ML 1ML Vial IV PRN (01:15)
[2025-01-22] MEDS ORDERED: OxyCODONE 5 mg/Acetamin 325 mg TABLET PO PRN (01:15)
[2025-01-22 04:05] VITALS: BP 118/62
[2025-01-22 07:23] VITALS: BP 108/62
--- NOTE | 2025-01-22 08:13 | NUR ---
SUMMARY PT WITH DIFFICULT MANAGEMENT OF PAIN CONTROL THIS SHIFT. [employer] AND MYSELF WORKED WITH PT AND NOTIFIED DR CHAUDHRY OBTAINING ORDER FOR HOSPITAL[facility] CX AND MED ORDER CHANGE.PT TAKING DILAUDID IV,ZOFRAN AND ANTI ANXIETY MED WITH REPORTED GOOD EFFECT, BOYD WITH BLOODY URINE,BUT HAS GOTTEN PAYROLL PROFESSIONAL PROGRESSING INTO SHIFT.PT VERB PLEASED SHE WAS ABLE TO GET SOME SLEEP TONIGHT.HAD EMESIS WHICH SHE CONTRIBUTES TO DILAUDID, BUT TAKING ZOFRAN NEEDS DILAUDID FOR ADEQUATE PAIN CONTROL,HAS HX NON RX DRUG USE.
[2025-01-22 15:34] VITALS: BP 104/53
--- NOTE | 2025-01-22 17:05 | NUR ---
SHIFT SUMMARY POD 1 BOYD REMAINS PATENT AND DRAINING. DARK YELLOW/RED IN COLOR. PT REMAINS PAINFUL, HAVE BEEN ENCOURAGING PT TO MOBILIZE, PT HAS DECLINED DURING SHIFT. MINIMAL AMOUNT IN MALENA DRAIN DURING SHIFT. ABD BINDER IN PLACE. PAIN MANAGED PER EMAR. PT REPORTS SOME EFFECT. TOLERATING MINIMAL INTAKE.
--- NOTE | 2025-01-22 18:10 | NUR ---
OFFERED TO GET PATIENT TO CHAIR FOR MEAL TIMES.OFFERED WALK X3 TODAY.PATIENT HAVING N,V AND PAIN.DECLINED TO GET UP.
[2025-01-22 19:26] VITALS: BP 104/64
--- NOTE | 2025-01-23 04:45 | NUR ---
SHIFT SUMMARY CARLOS WAS ALERT AND FULLY ORIENTED ON ASSESSMENT. INSCISION SITES C/D/I, MALENA OUTPUTTING SANG. URINE TO BOYD. PAIN MUCH MORE UNDER CONTROL THAN REPORTED PREVIOUSLY. NAUSEA UNDER CONTROL, NO VOMITING. PT DENIES SOB, OR CHEST PAIN. NO ACUTE EVENTS TONIGHT, NO NOTED CHANGES TO PT CONDITION.
[2025-01-23 05:03] VITALS: BP 109/59
[2025-01-23 05:33] LABS: BASOPHILS ABSOLUTE AUTO 0.02 K/mm3 (0.00-0.23); BASOPHILS PERCENT AUTO 0 % (0-2); EOSINOPHILS ABSOLUTE AUTO 0.03 K/mm3 (0.00-0.68); EOSINOPHILS PERCENT AUTO 0 % (0-6); Hematocrit 36.8 % (33.0-51.0); Hemoglobin 11.8 g/dL (11.5-16.0); IMMATURE GRAN ABSOLUTE AUTO 0.02 K/mm3 (0.00-0.10); IMMATURE GRAN PERCENT AUTO 0 % (0-1); LYMPHOCYTES ABSOLUTE AUTO 1.15 K/mm3 (0.84-5.20); LYMPHOCYTES PERCENT AUTO 13 % (21-46); MONOCYTES ABSOLUTE AUTO 0.59 K/mm3 (0.16-1.47); MONOCYTES PERCENT AUTO 7 % (4-13); Mean Corpuscular HGB Conc 32.1 g/dL (31.5-36.5); Mean Corpuscular Volume 88 fL (80-100); NEUTROPHILS ABSOLUTE AUTO 7.00 K/mm3 (1.96-9.15); NEUTROPHILS PERCENT AUTO 80 % (41-73); NRBC ABSOLUTE 0.00 K/mm3 (0.00-0.02); NRBC Auto 0.0 /100 WBC (0.0-0.2); Platelet Count 215 K/mm3 (150-400); RDW Coefficient Variation 11.9 % (11.7-14.2); RDW Standard Deviation 38.3 fL (35.1-46.3)
[2025-01-23 05:49] LABS: Anion Gap 5.0 mmol/L (3-11); Blood Urea Nitrogen 6.0 mg/dL (8-24); CO2, Blood 32.0 mmol/L (21-32); Calcium, Blood 8.1 mg/dL (8.5-10.1); Chloride, Blood 103.0 mmol/L (98-108); Creatinine, Blood 0.77 mg/dL (0.40-1.00); Glucose, Blood 93.0 mg/dL (70-99); Potassium, Blood 3.9 mmol/L (3.5-5.5); Sodium, Blood 136.0 mmol/L (136-145)
[2025-01-23 07:28] VITALS: BP 102/58
[2025-01-23] MEDS ORDERED: HYDROmorphone HCl/Pf 1MG SYR IV PRN (08:00)
[2025-01-23] MEDS ORDERED: Polyethylene Glycol 3350 17 gm PO SCH (09:00)
[2025-01-23 14:37] VITALS: BP 104/67
--- NOTE | 2025-01-23 17:28 | NUR ---
SHIFT SUMMARY PT IS A/OX4. PT IS REPORTING PAIN WHEN EATING, IMPROVED PAIN MANAGEMENT SINCE YESTERDAY, MEDICATED PER EMAR. PT IS SBA DUE TO PAIN, AMBULATING SHORT DISTANCES. ENCOURAGED AMBULATION. PT IS NOT PASSING FLATUS. NO N/V T/O THIS SHIFT. TOLERATING INTAKE. OUTPUT IS STILL MAROON IN FOLLEY. FOLLEY IS PATENT AND DRAINING TO GRAVITY. BED IN LOWEST POSITION. CALL LIGHT IN REACH, ABLE TO MAKE NEEDS KNOWN.
[2025-01-23] MEDS ORDERED: Calcium Carbonate 1,250 MG TABLET PO PRN (18:10)
[2025-01-23 19:39] VITALS: BP 108/58
[2025-01-24 04:22] VITALS: BP 115/64
--- NOTE | 2025-01-24 04:41 | NUR ---
SHIFT SUMMARY CARLOS WAS ALERT AND FULLY ORIENTED ON ASSESSMENT. PT REQUIRING LESS IV MEDICATION THAN PREV NOC. PT WAS NAUSEOUS AT START OF SHIFT WITH ONE EPISODE OF VOMITING. RESOLVED WITH ZOFRAN. LAP SITES C/D/I, MALENA VASQUEZ. BOYD OUTPUT IS STILL DARK MAROON. PT REPORTS NO BM. PT DENIES SOB/ CHEST PAIN. NO ACUTE EVENTS TONIGHT OR OTHER NOTED CHANGES TO PT CONDITION.
[2025-01-24 07:23] VITALS: BP 99/77
[2025-01-24 07:24] VITALS: BP 108/59
[2025-01-24] MEDS ORDERED: Magnesium Hydroxide Conc 10 ML UDC PO PRN (14:40)
[2025-01-24] MEDS ORDERED: Metoclopramide HCl 5MG / ML 2ML Vial IV ONE (15:00)
[2025-01-24 15:27] VITALS: BP 115/71
[2025-01-24 15:43] LABS: Anion Gap 7.0 mmol/L (3-11); Blood Urea Nitrogen 8.0 mg/dL (8-24); CO2, Blood 32.0 mmol/L (21-32); Calcium, Blood 8.7 mg/dL (8.5-10.1); Chloride, Blood 99.0 mmol/L (98-108); Creatinine, Blood 0.7 mg/dL (0.40-1.00); Glucose, Blood 100.0 mg/dL (70-99); Potassium, Blood 3.6 mmol/L (3.5-5.5); Sodium, Blood 134.0 mmol/L (136-145)
--- NOTE | 2025-01-24 16:24 | NUR ---
PATIENT PAIN MANAGED WITH PRN. STILL UNABLE TO TOLERATE FOOD. INCOURAGED FLUIDS. VOMITED ONCE 200 CC GREEN . THEN VOMITED ONCE RIGHT AFTER DILAUDID GIVEN. DR RICHARDSEFIED. NEW ORDERS RECEIVED AND TO CALL IF VOMITING CONTINUES. PATIENT WALKED TWICE DOWN HALLWAY. DEB PRODUCING RED CLEAR FLUID. DAE PRODUCING A SMALL AMOUNT OF THE SAME. PATIENT COMPLIANT WITH ALL INSTRUCTIONS.
[2025-01-24 19:30] VITALS: BP 112/66
[2025-01-25 04:44] VITALS: BP 112/63
--- NOTE | 2025-01-25 06:24 | NUR ---
SUMMARY: PT A/OX4, CALLS APPROPRIATELY TO ENDORSE NEEDS AND IS UP SBA D/T PAIN AND TO ASSIST W/MANAGEMENT OF LINES. SHE'S POD 4 S/P L.PARTIAL KIDNEY AND URETER REMOVAL W/STENT PLACEMENT. X5 LAP SITES REMAIN C/D/I AND MALENA DRAIN IS NOTED W/SCANT OUTPUT. BOYD REMAINS PATENT/DRAINING W/MAROON URINE AND OCC.SMALL CLOTS. BT'S (+) X4 QUADS AND PT PASSING FLATUS BUT STILL HASN'T HAD A BM DESPITE RECEIVING BOWEL MEDS PER EMAR. ABDO PAIN PAIN PERSISTS AND SHE C/O INTERMITTENT NAUSEA BUT HAS HAD NO EMESIS THIS SHIFT AND IS TOLERATING LIQ'S AND SOUP PER REQUEST. PT MEDICATED W/PRN ZOFRAN AND PERCOCET X2 DOSES AND HAD X1 DOSE IV DILUADID FOR BREAKTHROUGH PAIN. KPAD IS ALSO IN PLACE FOR IMPROVED COMFORT. NO ACUTE CHANGES, VSS/AFEBRILE. WILL REPORT TO DAY RN.
[2025-01-25 07:28] VITALS: BP 114/63
[2025-01-25] MEDS ORDERED: D5W-LR 1,000 ML IV SCH (09:00)
[2025-01-25] MEDS ORDERED: Trimethoprim/Sulfamethoxazole DS Tab PO SCH (09:00)
[2025-01-25] MEDS ORDERED: OXYACE7.5T PO (10:20)
[2025-01-25] MEDS ORDERED: ONDA4 PO (10:20)
--- NOTE | 2025-01-25 11:00 | NUR ---
patient discharged at 1050. iv removed. patient instructed how to care for indwelling hart. discharge instructions given to the patient. meds faxed to [facility]. pushed out to the patient entrance via wheelchair. the patient's boyfriend picked her up.
== END 2025-01-25 11:23 | disposition home or self-care (01) | DRG 948 ==
LOC: SURS 12:04 → ORSCMMR 12:04 → ORD 13:30 → ORSCMMR 13:30 → SURS 19:29 → ORSCMMR 01-22 09:20 → SURS 01-22 09:20 → MEDS 01-22 13:08 → SURS 01-25 10:52
PROVIDERS: Internal Medicine; Student in an Organized Health Care Education/Training Program; ADMIT Urology
DX: G89.18 Other acute postprocedural pain (principal); N12 Tubulo-interstitial nephritis, not specified as acute or chronic; F15.10 Other stimulant abuse, uncomplicated; F17.290 Nicotine dependence, other tobacco product, uncomplicated; K59.00 Constipation, unspecified; R14.0 Abdominal distension (gaseous); R11.2 Nausea with vomiting, unspecified; Z91.038 Other insect allergy status; Z88.8 Allergy status to other drugs, medicaments and biological substances; Z90.5 Acquired absence of kidney; Z98.890 Other specified postprocedural states; Z91.048 Other nonmedicinal substance allergy status; Z79.899 Other long term (current) drug therapy; Z79.2 Long term (current) use of antibiotics; Z01.812 Encounter for preprocedural laboratory examination
CPT/HCPCS: 36415; 80048; 85025; 86850; 86900; 86901; 88307; 94760; 94762; A9270; C1769; C2617; J1171; J1956; J2250; J2270; J2405; J2704; J2765; J3010; J7120

== ENCOUNTER 2025-01-31 10:33 | Emergency (ER) | payer OTHER ==
[~2025-01-31] VITALS: Ht 160 cm; Wt 59.0 kg
[~2025-01-31 10:33] MED LIST changes: +ONDA4 PO; +OXYACE7.5T PO
[2025-01-31 10:58] LABS: BASOPHILS ABSOLUTE AUTO 0.06 K/mm3 (0.00-0.23); BASOPHILS PERCENT AUTO 1 % (0-2); EOSINOPHILS ABSOLUTE AUTO 0.80 K/mm3 (0.00-0.68); EOSINOPHILS PERCENT AUTO 10 % (0-6); Hematocrit 36.7 % (33.0-51.0); Hemoglobin 12.0 g/dL (11.5-16.0); IMMATURE GRAN ABSOLUTE AUTO 0.03 K/mm3 (0.00-0.10); IMMATURE GRAN PERCENT AUTO 0 % (0-1); LYMPHOCYTES ABSOLUTE AUTO 2.28 K/mm3 (0.84-5.20); LYMPHOCYTES PERCENT AUTO 27 % (21-46); MONOCYTES ABSOLUTE AUTO 0.44 K/mm3 (0.16-1.47); MONOCYTES PERCENT AUTO 5 % (4-13); Mean Corpuscular HGB Conc 32.7 g/dL (31.5-36.5); Mean Corpuscular Volume 84 fL (80-100); NEUTROPHILS ABSOLUTE AUTO 4.84 K/mm3 (1.96-9.15); NEUTROPHILS PERCENT AUTO 57 % (41-73); NRBC ABSOLUTE 0.00 K/mm3 (0.00-0.02); NRBC Auto 0.0 /100 WBC (0.0-0.2); Platelet Count 571 K/mm3 (150-400); RDW Coefficient Variation 11.9 % (11.7-14.2); RDW Standard Deviation 36.8 fL (35.1-46.3)
[2025-01-31] MEDS ORDERED: SULFAMETHOXAZO1 EAC1 PO (11:03)
[2025-01-31] MEDS ORDERED: Ondansetron HCl 2 MG / ML 2ML Vial IV ONE (11:15)
[2025-01-31] MEDS ORDERED: HYDROmorphone HCl/Pf 1MG SYR IV ONE (11:15)
[2025-01-31 11:26] LABS: Alanine Aminotransfer (ALT/SGP 44.0 U/L (12-78); Albumin, Blood 3.5 g/dL (3.4-5.0); Albumin/Globulin Ratio 0.8 (0.8-1.8); Anion Gap 9.0 mmol/L (3-11); Aspartate Aminotrans (AST/SGOT 20.0 U/L (12-37); Bilirubin, Total 0.3 mg/dL (0.1-1.0); Blood Urea Nitrogen 15.0 mg/dL (8-24); CO2, Blood 25.0 mmol/L (21-32); Calcium, Blood 9.5 mg/dL (8.5-10.1); Chloride, Blood 105.0 mmol/L (98-108); Creatinine, Blood 0.65 mg/dL (0.40-1.00); Globulin, Blood 4.3 g/dL (2.2-4.0); Glucose, Blood 97.0 mg/dL (70-99); Potassium, Blood 4.3 mmol/L (3.5-5.5); Sodium, Blood 135.0 mmol/L (136-145); Total Protein, Blood 7.8 g/dL (6.4-8.2)
[2025-01-31] MEDS ORDERED: OXYACE7.5T PO (12:44)
[2025-01-31 13:00] VITALS: BP 119/69
== END 2025-01-31 13:06 | disposition home or self-care (01) ==
LOC: ER 10:33
PROVIDERS: Student in an Organized Health Care Education/Training Program
DX: G89.18 Other acute postprocedural pain (principal); R10.30 Lower abdominal pain, unspecified; F17.210 Nicotine dependence, cigarettes, uncomplicated
CPT/HCPCS: 80053; 83690; 85025; 96374; 96375; 99283-25; J1171; J2405

== ENCOUNTER → 2025-02-17 | Outpatient (CLI) | payer OTHER ==
[~2025-02-17] MED LIST changes: +SULFAMETHOXAZO1 EAC1 PO
== END ==
LOC: LAB SHORT 10:50 → LAB 10:50
DX: N39.0 Urinary tract infection, site not specified (principal)
CPT/HCPCS: 87077; 87086

== ENCOUNTER → 2025-02-25 | Outpatient (CLI) | payer OTHER | LOC: LAB 14:18 → LAB SHORT 14:18 | DX: Z01.419 Encounter for gynecological examination (general) (routine) without abnormal findings (principal) | CPT/HCPCS: 87624; G0145 ==

== ENCOUNTER 2025-04-29 15:30 | Emergency (ER) | payer OTHER ==
[~2025-04-29] VITALS: Ht 160 cm; Wt 58.1 kg
[2025-04-29 16:14] LABS: BASOPHILS ABSOLUTE AUTO 0.06 K/mm3 (0.00-0.23); BASOPHILS PERCENT AUTO 1 % (0-2); EOSINOPHILS ABSOLUTE AUTO 0.20 K/mm3 (0.00-0.68); EOSINOPHILS PERCENT AUTO 2 % (0-6); Hematocrit 41.3 % (33.0-51.0); Hemoglobin 13.6 g/dL (11.5-16.0); IMMATURE GRAN ABSOLUTE AUTO 0.01 K/mm3 (0.00-0.10); IMMATURE GRAN PERCENT AUTO 0 % (0-1); LYMPHOCYTES ABSOLUTE AUTO 2.64 K/mm3 (0.84-5.20); LYMPHOCYTES PERCENT AUTO 29 % (21-46); MONOCYTES ABSOLUTE AUTO 0.51 K/mm3 (0.16-1.47); MONOCYTES PERCENT AUTO 6 % (4-13); Mean Corpuscular HGB Conc 32.9 g/dL (31.5-36.5); Mean Corpuscular Volume 82 fL (80-100); NEUTROPHILS ABSOLUTE AUTO 5.60 K/mm3 (1.96-9.15); NEUTROPHILS PERCENT AUTO 62 % (41-73); NRBC ABSOLUTE 0.00 K/mm3 (0.00-0.02); NRBC Auto 0.0 /100 WBC (0.0-0.2); Platelet Count 320 K/mm3 (150-400); RDW Coefficient Variation 12.9 % (11.7-14.2); RDW Standard Deviation 38.7 fL (35.1-46.3)
[2025-04-29 16:27] LABS: CORONAVIRUS COVID-19 AG Negative (NEGATIVE)
[2025-04-29 16:48] LABS: Alanine Aminotransfer (ALT/SGP 37.0 U/L (12-78); Albumin, Blood 3.7 g/dL (3.4-5.0); Albumin/Globulin Ratio 1.0 (0.8-1.8); Anion Gap 8.0 mmol/L (3-11); Aspartate Aminotrans (AST/SGOT 20.0 U/L (12-37); Bilirubin, Total 0.2 mg/dL (0.1-1.0); Blood Urea Nitrogen 10.0 mg/dL (8-24); CO2, Blood 26.0 mmol/L (21-32); Calcium, Blood 8.9 mg/dL (8.5-10.1); Chloride, Blood 106.0 mmol/L (98-108); Creatinine, Blood 0.73 mg/dL (0.40-1.00); Globulin, Blood 3.8 g/dL (2.2-4.0); Glucose, Blood 81.0 mg/dL (70-99); Potassium, Blood 3.7 mmol/L (3.5-5.5); Sodium, Blood 136.0 mmol/L (136-145); Total Protein, Blood 7.5 g/dL (6.4-8.2)
[2025-04-29] MEDS ORDERED: ONDA4ODT MM (19:44)
[2025-04-29] MEDS ORDERED: Ketorolac Tromethamine 15mg Vial IV ONE (19:45)
[2025-04-29] MEDS ORDERED: RX Prepack 2 Tabs Ondansetron ODT 4MG UD ONE (19:45)
[2025-04-29] MEDS ORDERED: Ondansetron 4 MG SoluTab BC ONE (19:45)
[2025-04-29 20:03] VITALS: BP 109/81
== END 2025-04-29 20:04 | disposition home or self-care (01) ==
LOC: ER 15:30
PROVIDERS: Student in an Organized Health Care Education/Training Program
DX: J06.9 Acute upper respiratory infection, unspecified (principal); R11.0 Nausea; R51.9 Headache, unspecified; F17.210 Nicotine dependence, cigarettes, uncomplicated; Z79.899 Other long term (current) drug therapy; Z91.030 Bee allergy status; Z91.018 Allergy to other foods; Z88.6 Allergy status to analgesic agent; Z88.5 Allergy status to narcotic agent; Z91.048 Other nonmedicinal substance allergy status
CPT/HCPCS: 71046; 80053; 84484; 84703; 85025; 87428-QW; 96374; 99283-25; A9270; J1885